=== PATIENT | female | born 2000 | race African-American/Black ===

== ENCOUNTER 2018-04-08 20:43 | Emergency (ER) | payer SELFPAY ==
[~2018-04-08] VITALS: Ht 157.5 cm; Wt 46.0 kg
[2018-04-08] MEDS ORDERED: LORAZEPAM 2MG/ML CPJ IV STA (22:04)
[2018-04-08] MEDS ORDERED: SODIUM CHLORIDE 0.9% 1,000 ML IV ONE (22:04)
[2018-04-08 22:38] VITALS: BP 143/79
== END 2018-04-08 22:38 | disposition left against medical advice (07) ==
LOC: ER 20:43
DX: F12.180 Cannabis abuse with cannabis-induced anxiety disorder (principal); F10.129 Alcohol abuse with intoxication, unspecified; Y90.9 Presence of alcohol in blood, level not specified; R73.9 Hyperglycemia, unspecified
CPT/HCPCS: 82962; 99283; J7030